=== PATIENT | female | born 1955 ===

== ENCOUNTER 2023-11-05 20:56 | Observation (INO) | payer MEDICARE ==
[2023-11-05] MEDS ORDERED: Ondansetron PF 4 MG/2 ML Vial ONE (21:26)
[2023-11-05] MEDS ORDERED: Meclizine HCl 25 MG TAB ONE (21:58)
[2023-11-05] MEDS ORDERED: Aspirin Chewable 81 MG TAB ONE (21:58)
[2023-11-05 22:02] LABS: #Basophils 0.04 10x3/uL (0.0-0.2); #Eosinphils Less than 0.03 10x3/uL (0.0-0.7); %Basophils 0.4 % (0.0-1.0); %Eosinophils 0.1 % (0.0-10.0); %Lymphocytes 9.6 % (21.0-51.0); %Monocytes 4.8 % (0.0-10.0); %Neutrophils 84.8 % (42.0-75.0); Hematocrit 32.2 % (36.0-47.0); Hemoglobin 10.5 g/dL (12.0-16.0); Mean Corpuscular HGB CONC 32.6 g/dL (32.0-36.0); Mean Corpuscular Hemoglobin 25.5 pg (27.0-31.0); Mean Corpuscular Volume 78.2 fL (78.0-98.0); Mean Platelet Volume 9.5 fL (7.4-10.4); Platelet Count 222 10x3/uL (130-400); RBC Distribution Width 13.8 % (11.5-14.5); Red Blood Cell (RBC) Count 4.12 mill/uL (4.20-5.40)
[2023-11-05 22:44] LABS: ALT (SGPT) 14 U/L (8-55); AST (SGOT) 16 U/L (5-34); Albumin 3.6 g/dL (3.4-4.8); Alkaline Phosphatase 103 U/L (40-110); Anion Gap 12 mmol/L (10-20); BUN (Urea Nitrogen) 14 mg/dL (9.8-20.1); Bilirubin, Total 0.3 mg/dL (0.2-1.2); Calc. Creatinine Clearance 0 mL/min (70-130); Calcium 8.5 mg/dL (7.8-10.44); Carbon Dioxide 22 mmol/L (23-31); Chloride 103 mmol/L (98-107); Estimated GFR 93; Globulin 2.7 g/dL (2.4-3.5); Glucose 146 mg/dL (80-115); Magnesium 1.9 mg/dL (1.6-2.6); Protein, Total 6.3 g/dL (5.8-8.1); Sodium 134 mmol/L (136-145)
[2023-11-05 22:49] LABS: Troponin I Less than 0.010 ng/mL (< 0.028)
[2023-11-06] MEDS ORDERED: Diazepam 10 MG/2 ML SYRINGE ONE (00:47)
[2023-11-06] MEDS ORDERED: Ondansetron PF 4 MG/2 ML Vial ONE (00:47)
[2023-11-06] MEDS ORDERED: Potassium Chloride 20 MEQ (100 mL) BAG ONE (00:49)
[2023-11-06] MEDS ORDERED: NS 0.9% w/ 20 MEQ KCL 1,000 ML ONE ×2 (00:57→13:12)
[2023-11-06] MEDS ORDERED: Calcium Carbonate 500 MG ChewTAB PO PRN (09:08)
[2023-11-06] MEDS ORDERED: Acetaminophen 325 MG TAB PO PRN (09:08)
[2023-11-06] MEDS ORDERED: hydrALAZINE 20 MG/ML VIAL SLOW IVP PRN (09:12)
[2023-11-06] MEDS ORDERED: Magnesium 2 GM/50 ML BAG (IN WATER) ONE (11:51)
[2023-11-06] MEDS ORDERED: Meclizine HCl 25 MG TAB ONE (11:51)
[2023-11-06] MEDS: Magnesium 2 GM/50 ML(in water) 2 GM in Premix 1 BAG IVPB SCH (11:52)
[2023-11-06] MEDS: Meclizine HCl 25 MG TAB PO SCH ×2 (11:52→21:08)
[2023-11-06 11:56] LABS: Anion Gap 15 mmol/L (10-20); BUN (Urea Nitrogen) 11 mg/dL (9.8-20.1); Calc. Creatinine Clearance 48 mL/min (70-130); Calcium 10.7 mg/dL (7.8-10.44); Carbon Dioxide 24 mmol/L (23-31); Cardiac Risk 3.6 (Less than 4.5); Chloride 108 mmol/L (98-107); Cholesterol 323 mg/dl (< 200 Desired); Estimated GFR 82; Glucose 89 mg/dL (80-115); HDL Cholesterol 89 mg/dL (>60 Neg Risk); LDL Cholesterol, Calculated 217 mg/dL; Potassium 3.5 mmol/L (3.5-5.1); Sodium 143 mmol/L (136-145); Triglycerides 83 mg/dL (Less than 150)
[2023-11-06] MEDS ORDERED: Potassium Chloride 20 MEQ TAB ONE (13:12)
[2023-11-06] MEDS: NS 0.9% w/ 20 MEQ KCL 1,000 ML/1,000 ML BAG IV SCH (13:20)
[2023-11-06] MEDS: Cyanocobalamin (Vitamin B-12) 1,000 MCG TAB PO SCH (13:20)
[2023-11-06] MEDS: Potassium Chloride 20 MEQ TAB PO SCH (13:20)
[2023-11-06] MEDS: Atorvastatin Calcium 40 MG TAB PO SCH (21:08)
[2023-11-06] MEDS: Aspirin 81 mg Enteric Coated Tablet PO SCH (21:08)
[2023-11-06] MEDS: Enoxaparin 30 MG (0.3 mL) SYRINGE SC SCH (21:09)
[2023-11-06] MEDS: Folic Acid 1 MG TAB PO SCH (21:09)
[2023-11-06] MEDS: Famotidine 20 MG TAB PO SCH (21:09)
[2023-11-06] MEDS: Multivit, Therapeutic 1 TAB PO SCH (21:09)
[2023-11-07] MEDS: Cyanocobalamin (Vitamin B-12) 1,000 MCG TAB PO SCH (10:02)
[2023-11-07 17:17] VITALS: BP 169/83; TEMP 98
[2023-11-08] MEDS ORDERED: Amlodipine 5 MG TAB PO SCH (09:00)
[2023-11-08] MEDS ORDERED: Lisinopril 10 MG TAB PO SCH (09:00)
== END 2023-11-07 20:45 | disposition home or self-care (01) ==
LOC: ERS 20:56 → ERHOLD 11-06 02:48 → 2SE 11-06 14:33
PROVIDERS: ADMIT Student in an Organized Health Care Education/Training Program; ATTEND Family Medicine
PROC: B24BZZZ Ultrasonography of Heart with Aorta (ICD-10-PCS; principal; 2023-11-07)
DX: R42 Dizziness and giddiness (principal); I10 Essential (primary) hypertension; E78.5 Hyperlipidemia, unspecified; E87.1 Hypo-osmolality and hyponatremia; E83.42 Hypomagnesemia; E87.6 Hypokalemia; Z79.899 Other long term (current) drug therapy; Z98.890 Other specified postprocedural states
CPT/HCPCS: 70450; 70496; 70498; 70551; 71045; 80048; 80053; 80061; 83735; 84443; 84484; 85025; 93005; 93306; 97116; J1650; J2405 ×2; J3360; J3475; J3480; 36415; 96374; 96375; 96376; G0378